=== PATIENT | female | born 1975 | race Caucasian/White ===

== ENCOUNTER → 2018-12-04 | Emergency (ER) | payer OTHER ==
[~2018-12-04] VITALS: Ht 172.7 cm; Wt 98.9 kg
[~2018-12-04] MED LIST: DICLOFENAC POTA50 MG PO; NORFLEX100MG PO
== END | disposition home or self-care (01) ==
LOC: ER 21:23
DX: S30.0XXA Contusion of lower back and pelvis, initial encounter (principal); W18.2XXA Fall in (into) shower or empty bathtub, initial encounter; Y93.89 Activity, other specified; Y92.59 Other trade areas as the place of occurrence of the external cause; Y99.8 Other external cause status